=== PATIENT | female | born 1960 ===

== ENCOUNTER → 2017-06-10 20:14 | Outpatient (CLI) | payer BC ==
[2017-06-10 20:54] LABS: T4 THYROXIN - FREE 1.03 ng/dL (0.76-1.46); THYROID STIMULATING HORMONE 1.75 uIU/mL (0.36-3.74)
== END | disposition home or self-care (01) ==
LOC: D.LABREF 20:14
PROVIDERS: Internal Medicine Interventional Cardiology
DX: R00.2 Palpitations (principal)